=== PATIENT | female | born 1985 | race Two or more races ===

== ENCOUNTER 2022-10-19 15:46 | Emergency (ER) | payer OTHER ==
[~2022-10-19] VITALS: Ht 172.7 cm; Wt 72.6 kg
--- NOTE | 2022-10-19 16:28 | NUR ---
33 years old female biba [address] the [address] with etoh abuse placed on athletic monitor continuous pulse oximeter vss safety maintained no tremors.
[2022-10-19 16:50] LABS: HEMATOCRIT 39.4 % (31.2-41.9); MEAN CORPUSCULAR HEMOGLOBIN 31.7 uug (24.7-32.8); MEAN CORPUSCULAR VOLUME 94.6 fL (75.5-95.3); PLATELET COUNT (AUTO) 373 K/uL (179-408)
[2022-10-19 17:01] LABS: CARBON DIOXIDE 25 mmol/L (21-32); CHLORIDE 103 mmol/L (98-107); CREATININE 0.5 mg/dL (0.6-1.3); GLUCOSE 89 mg/dL (74-106); POTASSIUM 3.7 mmol/L (3.5-5.1); UREA NITROGEN, BLOOD 12 mg/dL (7-18)
[2022-10-19 17:07] LABS: ALANINE AMINOTRANSFERASE 24 U/L (14-59); ALKALINE PHOSPHATASE 229 U/L (50-136); ASPARTATE AMINOTRANSFERASE 18 U/L (15-37); BILIRUBIN,DIRECT < 0.1 mg/dL (0.0-0.2); BILIRUBIN,TOTAL 0.1 mg/dL (0.2-1.0); TOTAL PROTEIN, SERUM 7.7 g/dL (6.4-8.2)
[2022-10-19 17:15] LABS: ACETAMINOPHEN < 2.0 ug/mL (10-30)
[2022-10-19 17:22] LABS: ETHANOL 377 MG/DL (0-0)
[2022-10-19 17:24] LABS: *BILIRUBIN,URIN NEGATIVE (NEGATIVE); *BLOOD, URINE NEGATIVE (NEGATIVE); *CLARITY,URINE CLEAR (CLEAR); *COLOR,URINE LIGHT YELLOW (YELLOW); *KETONES,URINE NEGATIVE (NEGATIVE); *UROBILINOGEN,URINE 0.2 E.U./dl (NORMAL); LEUKOCYTE ESTERASE ,URINE TRACE (NEGATIVE); NITRITE, URINE NEGATIVE (NEGATIVE); PH,URINE 5.5 (5.0-8.0); UGLUCOSE NEGATIVE (NEGATIVE)
[2022-10-19 17:27] LABS: *URINE HCG, QUAL NEG (NEGATIVE)
[2022-10-19 17:43] LABS: *AMPHETAMINE, URINE NEGATIVE (NEGATIVE); *CANNABINOID, URINE POSITIVE (NEGATIVE); *COCCAINE, URINE NEGATIVE (NEGATIVE); *PHENCYCLIDINE SCREEN,URINE NEGATIVE (NEGATIVE)
--- NOTE | 2022-10-19 18:26 | NUR ---
patient sleeping aroused to verbal, painful stimuli vss safety maintained.
[2022-10-19] MEDS ORDERED: HALOPERIDOL LACTATE 5 MG/1 ML VIAL IM ONE (19:30)
[2022-10-19] MEDS ORDERED: LORAZEPAM 2 MG/1 ML VIAL IV ONE (19:30)
[2022-10-19] MEDS ORDERED: HALOPERIDOL LACTATE 5 MG/1 ML VIAL ONE (19:34)
[2022-10-19] MEDS ORDERED: LORAZEPAM 2 MG/1 ML VIAL ONE (19:34)
--- NOTE | 2022-10-19 19:56 | NUR ---
Patient pulled out IV to left hand. Replaced with 20G to left forearm.
--- NOTE | 2022-10-19 20:24 | NUR ---
PT TO CT VIA GURNEY ON O2.
[2022-10-19 22:37] LABS: BACTERIA,URINE MODERATE /HPF (NONE SEEN); RBC,URINE 0-3 /HPF (0-3); SQUAMOUS EPITHELIAL CELL,UR FEW /HPF (NONE SEEN)
--- NOTE | 2022-10-19 23:00 | NUR ---
PT SLEEPING QUIETLY ON HER L SIDE WITH NAD OBSERVED.
--- NOTE | 2022-10-20 03:00 | NUR ---
Patient sleeping comfortably in [facility]. No signs of distress noted.
--- NOTE | 2022-10-20 06:23 | NUR ---
Patient awake, aox4. Patient requested water. Given turkey sandwhich, jello and chocolate pudding.
--- NOTE | 2022-10-20 06:55 | NUR ---
Report given to Samir CABAN
--- NOTE | 2022-10-20 08:00 | NUR ---
PT WAS D/C'd TO HOME. D/C INSTRUCTIONS GIVEN TO THE PT BY DR VALLADARES.
[2022-10-20 08:01] VITALS: BP 139/88
== END 2022-10-20 08:04 | disposition home or self-care (01) ==
LOC: ER 15:46 → EDBD 15:46 → ER 10-20 08:04
DX: F10.129 Alcohol abuse with intoxication, unspecified (principal); R51.9 Headache, unspecified; M54.2 Cervicalgia; Y90.8 Blood alcohol level of 240 mg/100 ml or more
CPT/HCPCS: 80076; 80048; 81001; 84703; 85025; 36415; 70450 ×2; 72125 ×2; 99285; 96374; 96372; 80299; 80320; 80307; J1630; J2060; A4663; C1758; G0480